=== PATIENT | female | born 1990 | race African-American/Black ===

== ENCOUNTER → 2025-01-21 14:00 | Outpatient (BNV) | payer OTHER, SELFPAY | PROVIDERS: Visit Provider Radiology Diagnostic Radiology | DX: E04.2 Nontoxic multinodular goiter (principal) | CPT/HCPCS: 76536 ==

== ENCOUNTER 2025-01-21 14:10 | Outpatient (REF) | payer OTHER, SELFPAY ==
--- NOTE | ~2025-01-21 | US_ITS ---
EXAMINATION: US THYROID HISTORY: NON TOXIC SINGLE NODULE GOITER TECHNIQUE: Real-time grayscale ultrasound imaging was performed and images were reviewed. COMPARISON: There are no prior studies available for comparison. FINDINGS: SIZE: The right thyroid lobe measures 4.6 x 1.5 x 1.5 cm. The left thyroid lobe measures 4.8 x 1.4 x 1.8 cm. The isthmus measures 3 mm. FLOW: Flow to the gland is normal. ECHOGENICITY: The echotexture of the gland is homogeneous. NODULES: No thyroid nodules are identified. There are 2 hypoechoic nodules just inferior to the lower pole of the left thyroid lobe measuring 7 x 4 x 4 mm and 8 x 4 x 4 mm. These could represent lymph nodes or parathyroid adenomas. US/US thyroid IMPRESSION: No thyroid nodules are identified. Subcentimeter nodules just inferior to the lower pole of the left thyroid lobe may represent lymph nodes or parathyroid adenomas. Clinical correlation is recommended. ACR TI-RADS Guidelines TR1 (0 points): Benign, No follow-up or biopsy required TR2 (2 points): Not Suspicious, No biopsy or follow up indicated TR3 (3 points): Mildly Suspicious, FNA if >= 2.5 cm, Follow if >= 1.5 cm TR4 (4-6 points): Moderately Suspicious, FNA if >= 1.5 cm, Follow if >= 1.0 cm TR5 (>=7 points): Highly Suspicious, FNA if >= 1.0 cm, Follow if >= 0.5 cm Electronically signed by: Daniel Osborn MD 01/22/2025 07:11 AM EDT
--- OUTSIDE RECORDS SUMMARY | 2025-01-21 17:01 | XMS_ITS | Patient Health Record ---
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 Name Role Phone Osito Ramírez Primary Care Prov ider [phone] Allergies No Known Allergies Reason For Referral No Information Medications Medication SIG (Take, Route, Frequency, Duration) Notes Start Date End Date Status Cholecalciferol 1.25 MG (40365 UT) 1 capsule with a meal Orally once a week for 60 days Active Ibuprofen PRN Active Social History Tobacco Use: Social History Observation Description Date Details (start date - stop date) Never Smoker NA - NA Sex Assigned At : Social History Observation Description Sex Assigned At Female Tobacco Use/Smoking Question Answer Notes Patient is a: nonsmoker Alcohol Screen (Audit-C) Question Answer Notes Did you have a drink contain ing alcohol in the past year? Yes How often did you have a dri nk containing alcohol in the past year? Monthly or less (1 point) How many drinks did you have on a typical day when you were drinking in the past year? 1 or 2 drinks (0 point) How often did you have 6 or more drinks on one occasion in the past year? Never (0 point) Points 1 Interpretation Negative Problems Problem Type SNOMED Code ICD Code Onset Dates Problem Status W/U Status Risk Notes Problem 86883267 Other chronic pain (G89.29) Active confirmed Problem 185496281 Dyslipidemia (E78.5) Active confirmed Problem 06957973 Vitamin D deficiency (E55.9) Active confirmed Plan Of Treatment No Information Insurance Providers Payer Name Payer Address Payer Phone Subscriber Number Group Number Insured Name Patient Relationship to Insured Coverage Start Date Coverage End Date [employer] [address] [place], [place] [phone] [id number] Meredith Hunter Self - patient is the insured Medical (General) History Medical History History ICD Code chronic headaches Surgical History Surgery Date(Month/Year) Hospitalization History Reason Date(Month/Year)
== END 2025-01-21 14:11 | disposition home or self-care (01) ==
LOC: HO.UMASIMG 14:10
PROVIDERS: Visit Provider Nurse Practitioner Women's Health
DX: E04.1 Nontoxic single thyroid nodule (principal)
CPT/HCPCS: 76536